=== PATIENT | male | born 1975 | race African-American/Black ===

== ENCOUNTER 2018-12-05 15:47 | Emergency (ER) | payer OTHER ==
[~2018-12-05] VITALS: Ht 200.7 cm; Wt 98.0 kg
[2018-12-05 15:56] VITALS: Ht 200.7 cm; Wt 98.0 kg
[2018-12-05 17:24] VITALS: BP 140/76
== END 2018-12-05 17:24 | disposition home or self-care (01) ==
LOC: ED 15:47
DX: M25.561 Pain in right knee (principal); R07.89 Other chest pain; Z88.6 Allergy status to analgesic agent
CPT/HCPCS: J1885; Q0092